=== PATIENT | female | born 1990 | race Caucasian/White ===

== ENCOUNTER 2023-02-25 05:34 | Inpatient (IN) | payer BC ==
[~2023-02-25] VITALS: Ht 172.7 cm; Wt 90.5 kg
[2023-02-25] VITALS (22 sets, daily range): BP systolic 94–132; BP diastolic 43–79; PULSE 44–70; TEMP 98–98.3
--- NOTE | 2023-02-25 05:55 | NUR ---
Pt arrived on unit ambulatory and with concerns for possible ROM with a large gush of fluid at 0330 this morning. Pt reports occasional contractions, denies any vaginal bleeding and reports normal movement. EFM and toco monitor started. SVE done by previous shift RN. Unable to reach cervix but had a positive amniotrace. Dr. Munoz notified.
[2023-02-25 06:51] LABS: BASO # 0.1 K/mm3 (0.0-0.2); BASO % 0.6 % (0.0-2.0); EOS # 0.2 K/mm3 (0.0-0.7); EOS % 1.8 % (0.0-4.0); GRAN # 8.9 K/mm3 (1.4-6.5); GRAN % 70.3 % (42.2-75.2); HEMOGLOBIN 12.9 g/dl (12.5-16.0); LYMPH # 2.5 K/mm3 (1.2-3.4); LYMPH % 19.8 % (20.0-51.0); MEAN CELL VOLUME 85 fl (80.0-100.0); MEAN CORPUSCULAR HEMOGLOBIN 30 pg (27-31); MEAN CORPUSCULAR HGB CONC 35 g/dl (33.0-37.0); MEAN PLATELET VOLUME 10.2 fl (7.4-10.4); MONO # 0.8 K/mm3 (0.1-0.6); MONO % 6.7 % (1.7-9.3); PLATELET COUNT 234 K/mm3 (130-400); RED BLOOD COUNT 4.37 M/mm3 (4.10-5.30)
[2023-02-25] MEDS ORDERED: LEXAPRO20 MG PO (07:11)
[2023-02-25] MEDS ORDERED: PRENATAL (07:12)
--- NOTE | 2023-02-25 09:10 | NUR ---
Pt off EFM to the bathroom and ambulate around the room.
--- NOTE | 2023-02-25 11:37 | NUR ---
Pt off EFM to the bathroom.
--- NOTE | 2023-02-25 11:53 | NUR ---
Pt off EFM to walk to the OR.
--- NOTE | 2023-02-25 17:30 | NUR ---
Pt requesting to get up to the bathroom but reports she can not feel her feet while sitting on the edge of the bed. Assisted pt back to laying down in the bed. [place]-care done. Drainage noted on dressing. Marked location of drainage. Dr. Beard on the unit and notified of drainage.
[2023-02-26 03:20] VITALS: BP 112/69; PULSE 41; TEMP 98
[2023-02-26 05:00] VITALS: BP 107/61; PULSE 45; TEMP 97.7
[2023-02-26 07:15] VITALS: BP 110/70; PULSE 43; TEMP 97.9
--- NOTE | 2023-02-26 07:20 | NUR ---
PT UP OUT OF BED AT THIS TIME AND INDEPENDENTLY WALKS TO BATHROOM WITH STEADY GAIT. 3RD VOID DONE WITH 900 CC AND INT TAKEN OUT AT THIS TIME. PT EDUCATED BY THIS RN THAT SHE MAY SHOWER AND INSTRUCTED ON HOW TO CARE FOR ABDOMINAL DRESSING. PT STATES UNDERSTANDING AND THAT SHE WILL CALL OUT AFTER SHOWER SO THIS RN CAN LOOK AT [facility].
[2023-02-26] MEDS ORDERED: PERCOCET 325 MG1 TA2 PO (10:01)
[2023-02-26] MEDS ORDERED: IBU800 M1 PO (10:01)
--- NOTE | 2023-02-26 10:03 | NUR ---
Initial visit attempt; Family sleeping, [employer] left card offering congratulations and God's blessings for the of their daughter and information regarding the availability of [facility] at our hospital.
--- NOTE | 2023-02-26 14:30 | NUR ---
PT UP TO SHOWER AT THIS TIME. THIS RN HELPS PT REMOVE DRESSING AFTER SHOWER SHE STATED SHE COULD NOT REMOVE IN SHOWER. DRESSING EASILY REMOVED BY THIS RN AND [facility] AND WELL APROXIMATED.
[2023-02-26 16:30] VITALS: BP 115/61; PULSE 68; TEMP 98.3
[2023-02-26 19:37] VITALS: BP 119/59; PULSE 62; TEMP 97.8
[2023-02-27 06:55] VITALS: BP 114/76; PULSE 63; TEMP 97.6
== END 2023-02-27 16:00 | disposition home or self-care (01) | DRG 788 ==
LOC: LDRO 05:34 → LDR 06:40 → OB 06:40
PROVIDERS: Obstetrics & Gynecology; ADMIT Student in an Organized Health Care Education/Training Program
PROC: 10D00Z1 Extraction of Products of Conception, Low, Open Approach (ICD-10-PCS; principal; 2023-02-25)
DX: O32.1XX0 Maternal care for breech presentation, not applicable or unspecified (principal); Z3A.38 38 weeks gestation of pregnancy; Z37.0 Single live birth; O77.0 Labor and delivery complicated by meconium in amniotic fluid; F32.A Depression, unspecified; O99.344 Other mental disorders complicating childbirth; Z23 Encounter for immunization
CPT/HCPCS: J0171; J0665; J0690; J1100; J1885; J2371; J2405; J2590; J7120